=== PATIENT | male | born 1960 | race Caucasian/White ===

== ENCOUNTER 2018-02-27 00:06 | Emergency (ER) | payer BC ==
--- NOTE | 2018-02-27 01:39 | ED ---
GI/ HPI - HPI Summary HPI Summary: Patient with history of prostate removal at [facility] on Friday complains of possible obstruction to catheter. Denies any other pain, injury, symptoms. - History of Current Complaint Chief Complaint: EDUrogenitalProblems Time Seen by Provider: 02/27/18 01:17 Stated Complaint: CATH ISSUE Hx Obtained From: Patient Onset/Duration: Started Hours Ago Timing: Constant Current Severity: None Pain Intensity: 0 Associated Signs and Symptoms: Positive: Negative - Allergy/Home Medications Allergies/Adverse Reactions: Allergies Allergy/AdvReac Type Severity Reaction Status Date / Time acetaminophen [From Vicodin] Allergy Nausea And Verified 02/27/18 00:14 Vomiting hydrocodone [From Vicodin] Allergy Nausea And Verified 02/27/18 00:14 Vomiting PMH/Surg Hx/FS Hx/Imm Hx History: Denies: Hx Dialysis Opthamlomology History: Reports: Hx Contacts or Glasses - Surgical History Surgery Procedure, Year, and Place: Hernia repair 2007. Hydrocele 2009 Infectious Disease History: No Infectious Disease History: Denies: Hx Known/Suspected VRSA, History Other Infectious Disease, Traveled Outside the in Last 30 Days - Social History Alcohol Use: Occasionally Substance Use Type: Reports: None Smoking Status (MU): Never Smoked Tobacco Review of Systems Constitutional: Negative Eyes: Negative ENT: Negative Cardiovascular: Negative Respiratory: Negative Gastrointestinal: Negative Genitourinary: Negative Musculoskeletal: Negative Skin: Negative Neurological: Negative Psychological: Normal All Other Systems Reviewed And Are Negative: Yes Physical Exam - Summary Physical Exam Summary: Catheter appears to flow freely. Bladder scan indicates bladder empty. Triage Information Reviewed: Yes Vital Signs On Initial Exam: Initial Vitals Temp Pulse Resp BP Pulse Ox 99.3 F 99 16 156/102 99 02/27/18 00:08 02/27/18 00:08 02/27/18 00:08 02/27/18 00:08 02/27/18 00:08 Vital Signs Reviewed: Yes Appearance: Positive: Well-Appearing Skin: Positive: Warm Head/Face: Positive: Normal Head/Face Inspection Eyes: Positive: Normal Neck: Positive: Supple Respiratory/Lung Sounds: Positive: Clear to Auscultation Cardiovascular: Positive: Normal Abdomen Description: Positive: Nontender Musculoskeletal: Positive: Normal Neurological: Positive: Normal Psychiatric: Positive: Normal AVPU Assessment: Alert - Fátima Coma Scale Best Eye Response: 4 - Spontaneous Best Motor Response: 6 - Obeys Commands Best Verbal Response: 5 - Oriented Coma Scale Total: 15 Diagnostics - Vital Signs Vital Signs Temp Pulse Resp BP Pulse Ox 02/27/18 00:08 99.3 F 99 16 156/102 99 - Laboratory Lab Statement: Any lab studies that have been ordered have been reviewed, and results considered in the medical decision making process. GIGU Course/Dx - Course Course Of Treatment: Patient with history of prostate removal at [facility] on Friday complains of possible obstruction to catheter. Denies any other pain, injury, symptoms. Physical exam:Catheter appears to flow freely. Bladder scan indicates bladder empty. Vital signs within normal limits. Follow-up with surgeon. - Diagnoses Provider Diagnoses: Cardoza catheter problem Discharge - Sign-Out/Discharge Documenting (check all that apply): Patient Departure - Discharge Plan Condition: Stable Disposition: HOME Patient Education Materials: Cardoza Catheter Placement and Care (ED) Referrals: Jordin Huff MD [Primary Care Provider] - Additional Instructions: Follow-up with your surgeon. Return to the ED for any new or worsening symptoms - Billing Disposition and Condition Condition: STABLE Disposition: Home
[2018-02-27 02:08] VITALS: BP 121/74
== END 2018-02-27 02:07 | disposition home or self-care (01) ==
LOC: ED 00:06
DX: T83.9XXA Unspecified complication of genitourinary prosthetic device, implant and graft, initial encounter (principal); Z88.5 Allergy status to narcotic agent
CPT/HCPCS: 99281